=== PATIENT | male | born 1955 | race Caucasian/White ===

== ENCOUNTER 2018-10-14 21:17 | Inpatient (IN) | payer OTHER ==
[~2018-10-14] VITALS: Ht 182.9 cm; Wt 208.7 kg
--- NOTE | ~2018-10-14 | 2DMMODE ---
[facility] [place] [address] 2 D/M-MODE ECHOCARDIOGRAM Name: BENNY JAVIER Room #: 449-I [facility]#: [id number] Admission: 10/15/18 Attend Phys: Reggie Koehler MD Discharge: Date of : 51 Date of Service: 10/16/18 1027 Report #: [id number] THIS REPORT FOR: //name// APPROVED REPORT Study performed: 10/16/2018 09:35:53 EXAM: Comprehensive 2D, Doppler, and color-flow Echocardiogram Patient Location: Bedside Room #: [facility] Status: routine BSA: 3.05 HR: 77 bpm BP: 122/55 mmHg Rhythm: NSR Other Information Study Quality: Fair Echo Enhancing Agent Indication: Endocardial border delineation Agent(s) / Amount(s) Used: Optison 3 cc 2D Dimensions IVSd: 12.04 (7-11mm) LVOT Diam: 22.17 (18-24mm) LVDd: 54.08 mm PWd: 12.07 (7-11mm) Ascending Ao: 38.71 (22-36mm) LVDs: 35.43 (25-40mm) Aortic Root: 35.21 mm Aortic Valve AoV Peak Jitendra.: 1.54 m/s AO Peak Gr.: 9.52 mmHg LVOT Max P.09 mmHg LVOT Max V: 1.23 m/s BRANDO Vmax: 3.09 cm2 Mitral Valve E/A Ratio: 0.9 MV Decel. Time: 262.61 ms MV E Max Jitendra.: 0.82 m/s MV A Jitendra.: 0.90 m/s MV PHT: 76.16 ms IVRT: 101.50 ms Pulmonary Valve [facility] [address] [place] [place] [address] 2 D/M-MODE ECHOCARDIOGRAM Name: YAYABENNY Lilly Room #: 449-I [facility]#: [id number] Admission: 10/15/18 Attend Phys: Reggie Koehler MD Discharge: Date of : 51 Date of Service: 10/16/18 1027 Report #: [id number] PV Peak Jitendra.: 1.11 m/s PV Peak Gr.: 4.90 mmHg Pulmonary Vein P Vein S: 0.33 m/s P Vein A: 0.28 m/s P Vein D: 0.22 m/s P Vein A Dur.: 101.5 msec P Vein S/D Ratio: 1.50 Left Ventricle The left ventricle is normal size. There is normal LV segmental wall motion. Mild concentric left ventricular hypertrophy. The left ventricular systolic function is normal. The left ventricular ejection fraction is within the normal range. LVEF is 60-65%. Grade I - abnormal relaxation pattern. Right Ventricle Right ventricle is not well visualized. Right ventricle appears mildly dilated. The right ventricular systolic function is normal. Atria The left atrium size is normal. The right atrium size is normal. Aortic Valve The aortic valve is normal in structure. No aortic regurgitation is present. There is no aortic valvular stenosis. Mitral Valve The mitral valve is normal in structure. There is no mitral valve regurgitation noted. No evidence of mitral valve stenosis. Tricuspid Valve The tricuspid valve is normal in structure. There is no tricuspid valve regurgitation noted. Pulmonic Valve The pulmonary valve is normal in structure. There is no pulmonic valvular regurgitation. Great Vessels The aortic root is normal in size. IVC is not well visualized. Pericardium Trace pericardial effusion. [facility] [address] [place] [address] 2 D/M-MODE ECHOCARDIOGRAM Name: YAYABENNY Lilly Room #: 449-I [facility] IN ..#: [id number] Admission: 10/15/18 Attend Phys: Reggie Koehler MD Discharge: Date of : 51 Date of Service: 10/16/18 1027 Report #: [id number] <Conclusion> The left ventricle is normal size. LVEF is 60-65%. Right ventricle is not well visualized. Right ventricle appears mildly dilated. The aortic valve is normal in structure. The mitral valve is normal in structure. The tricuspid valve is normal in structure. The pulmonary valve is normal in structure. Trace pericardial effusion. <ELECTRONICALLY SIGNED> By: Sean Jain MD 10/16/18 1027 1027 1027 Sean Jain MD /INF
--- NOTE | ~2018-10-14 | EKG ---
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
--- NOTE | ~2018-10-14 | EKG ---
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: TEODORO : 1955 Requested By: Fazal Johnson Order Number: [id number] MD: Manny Lanier Measurements Intervals [place] Rate: 73 P: 16 ID: 125 QRS: 11 QRSD: 141 T: 19 QT: 436 QTc: 481 Interpretive Statements Sinus rhythm Nonspecific intraventricular conduction delay Compared to ECG 10/15/2018 13:42:38 sinus rhythm has replaced atrial fibrillation Electronically Signed On 10-17-2018 9:02:43 PHARMACIST APPRENTICE by Manny Lanier [email or web address] <ELECTRONICALLY SIGNED> By: Manny Lanier MD, [facility] 10/17/1802 4 4 Manny Lanier MD, [facility] /EPI
--- NOTE | ~2018-10-14 | EKG ---
[address] [place] [address] ELECTROCARDIOGRAM REPORT Name: BENNY JAVIER Room #: 357-P ADM IN ..#: [id number] Admission: 10/15/18 Attend Phys: Gary Florian MD Discharge: Date of : 51 Report #: [id number] THIS REPORT FOR: //name// [facility] Test Date: 2018-10-17 Test Time: 03:22:28 Pat Name: BENNY JAVIER Department: Room: 357 Gender: M Acupressurist: . : 1955 Requested By: Louann Mckeon Order Number: [id number] MD: Manny Lanier Measurements Intervals [place] Rate: 126 P: NC: QRS: -22 QRSD: 126 T: 67 QT: 352 QTc: 510 Interpretive Statements Atrial fibrillation Ventricular premature complex Left bundle branch block Compared to ECG 10/15/2018 13:42:38 Ventricular premature complex(es) now present Atrial fibrillation has replaced sinus rhythm Electronically Signed On 10-17-2018 8:57:59 ROLLED GOLD PLATER by Manny Lanier [email or web address] <ELECTRONICALLY SIGNED> By: Manny Lanier MD, [facility] 10/17/18 0857 1 1 Manny Lanier MD, [facility] /EPI
--- NOTE | ~2018-10-14 | EKG ---
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
[2018-10-14 21:19] VITALS: BP 135/66
[2018-10-14] MEDS ORDERED: SYNTHROID137 MC1 PO (21:38)
[2018-10-14] MEDS ORDERED: LASIX 80 MG TAB80 MG PO (21:38)
[2018-10-14] MEDS ORDERED: POTASSIUM99 M1 PO (21:39)
[2018-10-14] MEDS ORDERED: XARELTO20 MG PO (21:40)
[2018-10-14] MEDS ORDERED: TRAMADOL 50 MG50 MG PO (21:40)
[2018-10-14] MEDS ORDERED: NEURONTIN300 MG PO (21:41)
[2018-10-14 22:30] LABS: ABSOLUTE NEUTROPHILS 8.9 thou/uL (1.4-8.2); BASOPHILS 0.9 % (0.0-2.0); EOSINOPHILS 1.5 % (0.0-3.0); HEMATOCRIT 40.1 % (42.0-52.0); HEMOGLOBIN 13.4 gm/dL (14.0-18.0); LYMPHOCYTES 13.9 % (24.0-44.0); MCH 29.7 pg (26.0-34.0); MCHC 33.3 g/dL (28.0-37.0); MCV 89.1 fL (80.0-100.0); MONOCYTES 4.5 % (1.0-8.0); PLATELET COUNT 193 thou/uL (150-400); POLYS 79.2 % (36.0-66.0); RDW 15.3 % (10.5-14.5); WBC 11.3 thou/uL (4.0-11.0)
[2018-10-14 22:36] LABS: ANION GAP 6 mmol/L (7-16); BUN 20 mg/dL (7-18); CHLORIDE 99 mmol/L (98-107); CO2 33 mmol/L (21-32); CREATININE 0.9 mg/dL (0.7-1.3); GLUCOSE 121 mg/dL (74-106); POTASSIUM 3.7 mmol/L (3.5-5.1); SODIUM 138 mmol/L (136-145)
[2018-10-14 22:44] LABS: TROPONIN-I <0.06 ng/mL (<0.06)
[2018-10-15] VITALS (10 sets, daily range): BP systolic 87–140; BP diastolic 42–68
[2018-10-15 01:37] LABS: APTT 27.8 Seconds (24.5-32.8); PROTIME 10.5 Seconds (9.3-11.4)
[2018-10-15 06:08] LABS: CHOLESTEROL 127 mg/dL (<200); HDL CHOLESTEROL 50 mg/dL (>40); LDL CHOLESTEROL 67 mg/dL (<100); TC:HDL 2.5 Ratio (Not establshd); TRIGLYCERIDE 50 mg/dL (<150); VLDL 10 mg/dL (<40)
[2018-10-15 22:05] LABS: GLYCOHEMOGLOBIN (HGB A1C) 5.8 % (4.8-5.6)
[2018-10-16 05:26] VITALS: BP 114/63
[2018-10-16 06:05] LABS: HEMATOCRIT 37.1 % (42.0-52.0); HEMOGLOBIN 12.1 gm/dL (14.0-18.0); MCH 29.4 pg (26.0-34.0); MCHC 32.7 g/dL (28.0-37.0); MCV 89.9 fL (80.0-100.0); RBC 4.12 mil/uL (4.50-6.00); RDW 15.3 % (10.5-14.5); WBC 8.1 thou/uL (4.0-11.0)
[2018-10-16 06:16] LABS: ANION GAP 9 mmol/L (7-16); BUN 19 mg/dL (7-18); CALCIUM 9.2 mg/dL (8.5-10.1); CHLORIDE 100 mmol/L (98-107); CO2 33 mmol/L (21-32); CREATININE 0.9 mg/dL (0.7-1.3); GLUCOSE 106 mg/dL (74-106); POTASSIUM 3.7 mmol/L (3.5-5.1); SODIUM 142 mmol/L (136-145)
[2018-10-16 06:24] LABS: TROPONIN-I <0.06 ng/mL (<0.06)
[2018-10-16 08:00] VITALS: BP 126/55
[2018-10-16 19:16] VITALS: BP 126/73
[2018-10-17 03:11] VITALS: BP 121/46
[2018-10-17 05:41] LABS: HEMATOCRIT 37.2 % (42.0-52.0); HEMOGLOBIN 12.4 gm/dL (14.0-18.0); MCH 29.8 pg (26.0-34.0); MCHC 33.2 g/dL (28.0-37.0); MCV 89.8 fL (80.0-100.0); RBC 4.14 mil/uL (4.50-6.00); RDW 15.4 % (10.5-14.5); WBC 9.6 thou/uL (4.0-11.0)
[2018-10-17 05:57] LABS: CREATININE 0.8 mg/dL (0.7-1.3); POTASSIUM 3.3 mmol/L (3.5-5.1)
[2018-10-17 06:45] VITALS: BP 94/57
[2018-10-17 11:45] LABS: INR 1.1; PROTIME 11.3 Seconds (9.3-11.4)
[2018-10-17 11:54] VITALS: BP 114/54
[2018-10-17 15:32] VITALS: BP 116/71
[2018-10-17 19:10] VITALS: BP 95/57
[2018-10-18 03:41] VITALS: BP 143/63
[2018-10-18 06:28] LABS: INR 1.1; PROTIME 11.2 Seconds (9.3-11.4)
[2018-10-18 07:28] VITALS: BP 136/78
[2018-10-18 08:23] LABS: CALCIUM 9.3 mg/dL (8.5-10.1); CREATININE 0.9 mg/dL (0.7-1.3); POTASSIUM 3.4 mmol/L (3.5-5.1)
[2018-10-18 11:19] VITALS: BP 130/64
[2018-10-18 16:02] VITALS: BP 131/75
[2018-10-18 19:30] VITALS: BP 118/57
[2018-10-19 03:40] VITALS: BP 111/61
[2018-10-19 06:20] LABS: HEMATOCRIT 35.9 % (42.0-52.0); MCH 29.9 pg (26.0-34.0); MCHC 33.3 g/dL (28.0-37.0); MCV 89.6 fL (80.0-100.0); RBC 4.01 mil/uL (4.50-6.00); RDW 14.9 % (10.5-14.5); WBC 9.4 thou/uL (4.0-11.0)
[2018-10-19 06:33] LABS: CALCIUM 9.4 mg/dL (8.5-10.1); CREATININE 0.9 mg/dL (0.7-1.3); INR 1.1; MAGNESIUM 1.9 mg/dL (1.8-2.4); POTASSIUM 3.5 mmol/L (3.5-5.1)
[2018-10-19 08:21] VITALS: BP 109/85
[2018-10-19 12:06] VITALS: BP 135/78
[2018-10-19 16:10] VITALS: BP 125/80
[2018-10-19 19:25] VITALS: BP 123/68
[2018-10-20 04:41] VITALS: BP 147/77
[2018-10-20 07:11] LABS: INR 1.6; PROTIME 16.5 Seconds (9.3-11.4)
[2018-10-20 07:12] LABS: CALCIUM 9.6 mg/dL (8.5-10.1); CREATININE 0.8 mg/dL (0.7-1.3); MAGNESIUM 2.1 mg/dL (1.8-2.4); POTASSIUM 3.4 mmol/L (3.5-5.1)
[2018-10-20 08:14] VITALS: BP 139/90
[2018-10-20 12:32] VITALS: BP 128/63
[2018-10-20] MEDS ORDERED: BAYER CHEWABLE81 MG PO (13:55)
[2018-10-20] MEDS ORDERED: COUMADIN 5 MG TA5 M1 PO (13:55)
[2018-10-20] MEDS ORDERED: METOPROLOL SUCC50 MG PO (13:55)
[2018-10-20] MEDS ORDERED: NITROSTAT0.4 MG SUBLING (13:55)
[2018-10-20] MEDS ORDERED: PEPCID20 MG PO (13:55)
[2018-10-20] MEDS ORDERED: COLACE100 MG PO (13:55)
[2018-10-20 14:49] VITALS: BP 128/63
[2018-10-20] MEDS ORDERED: LASIX 80 MG TAB80 MG PO (15:20)
== END 2018-10-20 16:57 | disposition home or self-care (01) | DRG 205 ==
LOC: ER 21:17 → 3W 10-15 00:10 → EROBS 10-15 00:10 → 4W 10-15 00:10 → 3W 10-17 07:11 → ENTRNSPT 10-20 15:29 → EDTRNSPTSTS 10-20 15:33 → 3W 10-20 16:57
PROVIDERS: Emergency Medicine; Hospitalist; Internal Medicine; Nurse Practitioner; Nurse Practitioner Family
PROC: 05HC33Z Insertion of Infusion Device into Left Basilic Vein, Percutaneous Approach (ICD-10-PCS; principal; 2018-10-16)
DX: M94.0 Chondrocostal junction syndrome [Tietze] (principal); K57.31 Diverticulosis of large intestine without perforation or abscess with bleeding; K55.21 Angiodysplasia of colon with hemorrhage; K62.5 Hemorrhage of anus and rectum; Z68.44 Body mass index [BMI] 60.0-69.9, adult; E03.9 Hypothyroidism, unspecified; F12.90 Cannabis use, unspecified, uncomplicated; K59.00 Constipation, unspecified; I48.0 Paroxysmal atrial fibrillation; E87.6 Hypokalemia; E66.01 Morbid (severe) obesity due to excess calories; G89.29 Other chronic pain; M54.9 Dorsalgia, unspecified; F17.210 Nicotine dependence, cigarettes, uncomplicated; Z82.49 Family history of ischemic heart disease and other diseases of the circulatory system; V89.2XXA Person injured in unspecified motor-vehicle accident, traffic, initial encounter; Y93.89 Activity, other specified; G83.14 Monoplegia of lower limb affecting left nondominant side; Y92.89 Other specified places as the place of occurrence of the external cause; Y99.8 Other external cause status; Z71.6 Tobacco abuse counseling; Z79.82 Long term (current) use of aspirin; Z79.899 Other long term (current) drug therapy; Z79.01 Long term (current) use of anticoagulants; Z86.711 Personal history of pulmonary embolism
CPT/HCPCS: 10045; 10879; 27000